=== PATIENT | male | born 1990 | race Caucasian/White ===

== ENCOUNTER → 2021-02-14 | Emergency (ER) | payer SELFPAY ==
[~2021-02-14] MED LIST: FLOMAX0.4 MG PO; LODINE CAP 300300 MG PO; NORCO 5-325 TA1 EACH PO; ZOFRAN ODT 4 MG4 MG PO
== END | disposition home or self-care (01) ==
LOC: ER1 14:59
DX: S61.211A Laceration without foreign body of left index finger without damage to nail, initial encounter (principal); F17.200 Nicotine dependence, unspecified, uncomplicated; W26.8XXA Contact with other sharp object(s), not elsewhere classified, initial encounter
CPT/HCPCS: 12001; 99283

== ENCOUNTER → 2022-03-11 | Emergency (ER) | payer SELFPAY ==
[~2022-03-11] MED LIST changes: +CEPHALEXIN500 M1 PO
== END | disposition home or self-care (01) ==
LOC: ER1 11:30
DX: S61.210A Laceration without foreign body of right index finger without damage to nail, initial encounter (principal); F17.210 Nicotine dependence, cigarettes, uncomplicated; W25.XXXA Contact with sharp glass, initial encounter; Y92.009 Unspecified place in unspecified non-institutional (private) residence as the place of occurrence of the external cause
CPT/HCPCS: 73130; 99283

== ENCOUNTER 2022-04-08 15:45 | Emergency (ER) | payer SELFPAY ==
[2022-04-08 16:29] LABS: RED BLOOD COUNT 4.77 M/UL (4.20-5.50); WHITE BLOOD COUNT 10.6 K/UL (4.5-11.0)
[2022-04-08 16:55] LABS: BUN/CREATININE RATIO 9 (0-10)
== END 2022-04-08 18:25 | disposition left against medical advice (07) ==
LOC: ER1 15:45
DX: Z53.21 Procedure and treatment not carried out due to patient leaving prior to being seen by health care provider (principal)
CPT/HCPCS: 80053; 81001; 83690; 85025